=== PATIENT | female | born 1975 | race Caucasian/White ===

== ENCOUNTER 2020-02-25 01:47 | Outpatient (CLI) | payer OTHER, SELFPAY ==
--- NOTE | 2020-02-25 06:30 | DI.US_ITS ---
EXAM: US SOFT TISSUE EXTREMITY CLINICAL HISTORY: posterior left knee pain x 1yr,m25.562 TECHNIQUE: Ultrasound performed using standard protocol. COMPARISON: No exams were available for comparison FINDINGS: Soft tissue ultrasound was performed to evaluate questionable abnormality of the popliteal fossa. Th ere is no evidence of Rehman's cyst and no evidence solid mass in this region. IMPRESSION: Negative soft tissue ultrasound popliteal fossa. DATA REPOSITORY:
--- NOTE | 2020-02-25 06:30 | DI.RAD_ITS ---
EXAM: XR KNEE LT 3V AP,LAT,JANKI CLINICAL HISTORY: Posterior left knee pain x 1yr,m25.562 TECHNIQUE: COMPARISON: No exams were available for comparison FINDINGS: Three views were obtained. No bony or soft tissue abnormality seen. IMPRESSION:
== END 2020-02-25 02:07 ==
PROVIDERS: PCP Nurse Practitioner Family; Visit Provider Nurse Practitioner Family
DX: M25.562 Pain in left knee (principal)
CPT/HCPCS: 73562; 76881

== ENCOUNTER 2020-03-05 18:40 | Emergency (ER) | payer OTHER, SELFPAY ==
[2020-03-05 18:50] VITALS: BP 166/86; PULSE 88; RESP 18; TEMP 37; O2SAT 100
--- NOTE | 2020-03-05 18:55 | W.ED.GENAD ---
Discharge Plan Disposition Patient Disposition: HOME Condition: Stable Discharge Details Chief Complaint: Orthopedic Clinical Impression: Left ankle sprain, Lisfranc's sprain Primary Care Provider: Ana Fine ED Provider: Jimenez Hernandez Home Meds and New Rx's Prescriptions: Continued metaxalone [Skelaxin] 800 mg tablet 800 mg PO TID-QID PRNRF: 0 ibuprofen 800 mg tablet 800 mg PO Q6H PRNRF: 0 magnesium 250 mg tablet 500 mg PO DAILY RF: 0 Discharge Instructions Instructions: Ankle Sprain (ED), Foot Sprain (ED) Additional Instructions: Use orthopedic boot and crutches. No weightbearing on left foot. Please follow-up with orthopedics. Call tomorrow. Take ibuprofen as prescribed. Please take acetaminophen (tylenol) - 650mg every 6 hours by mouth as needed for pain. Return to the ER for any worsening or new concerning symptoms. Referrals: [facility] [Provider Group] Discharge Data Discharge Date/Time-TO BE ENTERED AT DEPARTURE: 03/05/20 20:50 Medical Decision Making 1855??44-year-old female presents 4 days after fall with injury to her left ankle, here with swelling and pain. Patient was seen at outside hospital emergency department had negative x-rays. Patient is quite tender anteromedially and has pain with any flexion or extension at her ankle. Concern for severe sprain versus fracture not apparent on initial x-rays. Plan to repeat x-ray today. She has not taken any ibuprofen today. I will give Toradol 30 mg IM. --X-ray of the foot and ankle were reviewed and interpreted by radiology:IMPRESSION: 1. No acute fracture or dislocation. 2. Question of widening between the bases of the 1st and 2nd metatarsals. If there is concern for ligamentous injury, MRI should be considered for further evaluation. Patient immobilized with orthopedic boot and provided crutches. Patient was advised to follow-up with orthopedics. HPI General Mode of arrival: ambulatory. Date/Time Provider Initiated Documentation: 03/05/20 18:54. Limitations to Documentation: no limitations. Information obtained by: patient. HPI Narrative: 44-year-old female presents with left foot and ankle pain. Patient notes that she slipped and fell and hyper plantarflexed her ankle underneath of her body 4 days ago. She has had pain in her ankle and foot since the fall. She was seen at outside hospital and had negative x-rays. She notes continued pain and swelling. Denies associated numbness or tingling. Pain is severe. Worse with ambulation and movement of the ankle. Related Data Home Medications Medication Instructions Recorded Confirmed metaxalone 800 mg tablet 800 mg PO TID-QID PRN 02/13/20 ibuprofen 800 mg tablet 800 mg PO Q6H PRN 03/04/20 magnesium 250 mg tablet 500 mg PO DAILY tab 03/04/20 Allergies Allergy/AdvReac Type Severity Reaction Status Date / Time adhesive tape Allergy Severe Verified 03/05/20 19:45 General Stated Complaint: Orthopedic BRAEDEN: 4 Review of Systems Musculoskeletal Musculoskeletal: Reports as per HPI Neurologic Neurologic: Reports as per HPI [facility] Medical History Amaurosis fugax (Acute) Cervical cancer (Resolved) Fatigue (Acute) Hypothyroid (Chronic) Low back pain (Acute) Migraine (Chronic) Neck pain (Acute) TMJ tenderness, bilateral (Acute) Surgical History H/O LEEP (Acute) H/O removal of cyst (Acute) From left breast H/O umbilical hernia repair (Acute) History of bunionectomy of left great toe (Acute) History of section (Chronic 06/02/08) S/P laparoscopic hysterectomy (Acute ~2008) S/P ORIF (open reduction internal fixation) fracture (Acute ~10/2006) For right ulnar and radius fracture Family History Mother Stomach cancer Colon cancer Mid 40s Father Colon cancer In his 50s Sister No problems noted. Sister No problems noted. Sister Thyroid cancer Daughter No problems noted. Maternal Grandfather , age 70 Heart disease Myocardial infarction Paternal Grandfather , age 70 Heart disease Myocardial infarction Maternal Grandmother , age 55 Heart disease Myocardial infarction Paternal Grandmother , age 84 Alzheimer disease Social History Smoking/Tobacco Use Status: Never Second Hand Exposure: Yes (as a child) Alcohol Intake: never Drug use: Never Caregiver/Support person: No Household members: spouse and children Communication Needs: None Do you need help understanding health information?: Never Pets and animals: Yes Pets and animals: cat(s) and dog(s) Sexually active: Yes Do you think of yourself as: straight/heterosexual Current gender identity: female What is your relationship status?: How often do you talk on the phone with friends or family?: decline to answer How often do you get together with friends or relatives?: decline to answer How often do you attend mu-ism or restoration services?: decline to answer Do you belong to any clubs or organized social groups?: no Panel score (0-1 are the most socially isolated patients): 1 What type of physical activity do you participate in: decline to answer Duration: decline to answer Frequency: decline to answer Michelle/Mormon: None Special michelle needs: No Seatbelt use: always Helmet use: Yes Helmet use: sometimes Drive intox or ride w/intox restaurant 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: No Female Reproductive History Menstrual Menopause type: surgical History History 1 Para 1 Hx # Term Pregnancies Multiple births Hx # Pregnancies Ectopic pregnancies AB induced Hx Number of Living Children 1 AB spontaneous Exam Const General: cooperative and no acute distress Cardio Rate: regular rate and not tachycardic Rhythm: regular rhythm Pulses: dorsalis pedis present bilaterally 2+ Skin Trauma: no lacerations Neuro General: patient alert, patient awake, patient oriented x3 and tone normal Extrem General: edema (Proximal foot and ankle) Laterality: left Left lower extremity: ankle Details: tenderness Location: anteromedially, swelling and abnormal ROM Details: pain with active ROM Details: with plantar flexion, with dorsiflexion and with inversion; no warmth and foot Details: tenderness Location: of the dorsal foot Location: proximally, toes with normal ROM and motor-sensory exam Details: light-touch normal; no lacerations Course Vital Signs Vital signs: Vital Signs Temperature 37 C 03/05/20 18:50 Pulse 88 03/05/20 18:50 Respiratory Rate 18 03/05/20 18:50 Blood Pressure 166/86 H 03/05/20 18:50 Pulse Oximetry 100 03/05/20 18:50 Temperature 37 C 03/05/20 18:50 Temperature Source Skin 03/05/20 18:50 Pulse 88 03/05/20 18:50 Respiratory Rate 18 03/05/20 18:50 Blood Pressure 166/86 H 03/05/20 18:50 Blood Pressure Position Sitting 03/05/20 18:50 Pulse Oximetry 100 03/05/20 18:50 Oxygen Delivery Method Room Air 03/05/20 18:50 Oxygen Flow Rate 0 03/05/20 18:50 Pain Level 8 03/05/20 18:50
[2020-03-05] MEDS: Ketorolac 30 MG/ML VIAL IM (19:04)
--- NOTE | 2020-03-05 19:34 | DI.RAD_ITS ---
EXAM: XR ANKLE LT COMPLETE and XR foot LT complete CLINICAL HISTORY: pain, swelling, injury 4 days ago TECHNIQUE: 2D digital imaging was performed. COMPARISON: CR,XR XR FOOT LT COMPLETE from 03/05/2020 FINDINGS: BONES: No acute fracture is present. No bony destructive lesion is seen. Old healed 5th metatarsal fr acture. JOINTS:The ankle mortise is normally aligned. Prior bunionectomy. There is a question of widening o f the bases of the 1st and 2nd metatarsals suspicious for ligament injury. SOFT TISSUE: Normal. IMPRESSION: 1. No acute fracture or dislocation. 2. Question of widening between the bases of the 1st and 2nd metatarsals. If there is concern for li gamentous injury, MRI should be considered for further evaluation. DATA REPOSITORY: RADIATION DOSE DELIVERED:
--- NOTE | 2020-03-05 19:42 | DI.VRAD_ITS ---
Addendum created by Aayush Da Silva MD on 03/05/2020 7:42:35 PM EDT THIS REPORT CONTAINS FINDINGS THAT MAY BE CRITICAL TO PATIENT CARE. The findings were verbally communicated via telephone conference with IRVIN HOLLINGSWORTH at 7:42 PM EDT on 03/05/2020. The findings were acknowledged and understood. Initial report created on 03/05/2020 7:42:00 PM EDT PROCEDURE INFORMATION: Exam: XR Left Foot Complete Exam date and time: 03/05/2020 7:30 PM Age: 44 years old Clinical indication: Pain; Ankle and foot; Left; Patient HX: Injury 4 days ago TECHNIQUE: Imaging protocol: XR Left foot. Views: 3 or more views. COMPARISON: No relevant prior studies available. FINDINGS: Bones/joints: Deformity of the 1st metatarsal is consistent with previous bunionectomy and there is also deformity involving the distal shaft of the left 5th metatarsal consistent with an old healed fracture. There is slight widening of the interval between the bases of the 1st and 2nd metatarsals and the lateral margin of the distal pole of the medial cuneiform raising the possibility of underlying ligamentous injury. No acute fractures are identified. Soft tissues: Unremarkable. IMPRESSION: 1. Bunionectomy defect involving the left great toe with old healed fracture also seen involving the distal shaft of the left 5th metatarsal. 2. Slight widening of the Lisfranc interval could relate to underlying ligamentous injury. MRI of left foot could provide additional diagnostic information. Dictated and Authenticated by: Aayush Da Silva MD. Ordering:SHEMAR Gaona MD
--- NOTE | 2020-03-05 19:43 | DI.VRAD_ITS ---
PROCEDURE INFORMATION: Exam: XR Left Ankle Exam date and time: 03/05/2020 7:29 PM Age: 44 years old Clinical indication: Pain; Ankle and foot; Left TECHNIQUE: Imaging protocol: XR Left ankle. Views: 3 or more views. COMPARISON: No relevant prior studies available. FINDINGS: Bones/joints: Talar dome is intact and the ankle mortise is preserved. Alignment is normal at the left ankle with no acute fracture detected. Soft tissues: Unremarkable. IMPRESSION: No acute findings. Dictated and Authenticated by: Aayush Da Silva MD. Ordering:SHEMAR Gaona MD
[2020-03-05 19:45] VITALS: BP 106/67; PULSE 68; RESP 16; O2SAT 98
== END 2020-03-05 20:50 | disposition home or self-care (01) ==
PROVIDERS: Emergency Provider Student in an Organized Health Care Education/Training Program; PCP Nurse Practitioner Family
DX: S93.622A Sprain of tarsometatarsal ligament of left foot, initial encounter (principal); S93.402A Sprain of unspecified ligament of left ankle, initial encounter; W18.30XA Fall on same level, unspecified, initial encounter; X50.9XXA Other and unspecified overexertion or strenuous movements or postures, initial encounter
CPT/HCPCS: 29515; 96372; 99284; 73610; 73630; J1885; L4361

== ENCOUNTER 2020-03-18 02:51 | Outpatient (CLI) | payer OTHER, SELFPAY ==
--- NOTE | 2020-03-18 08:45 | DI.MAMMO_ITS ---
EXAM: MAMMO SCREENING CLINICAL HISTORY: screening,Z12.39 TECHNIQUE: Mammograms were interpreted according to the usual protocol including computer analysis w [employer] CAD system, tomosynthesis and C-view imaging. COMPARISON: FINDINGS: The breasts are heterogeneously dense. No dominant mass or clumped microcalcification is identified in either breast. A focal well-circumscribed 2 cm radiodensity of the left breast projected superior ly on the MLO view is unchanged in appearance in comparison with prior studies including January 2018 an d may represent a cyst or asymmetric fibroglandular tissue. Is not appreciated on the CC views. No other significant interval change in appearance comparison with the prior studies. IMPRESSION: No specific evidence of malignancy at this time. Routine screening examinations are suggested at yea rly intervals in this age group according to the ACS ACR guidelines. BI-RADS Category 1 - Negative Breast Density - Category C - Heterogeneously dense
== END 2020-03-18 03:11 ==
PROVIDERS: PCP Nurse Practitioner Family; Visit Provider Nurse Practitioner Family
DX: Z12.31 Encounter for screening mammogram for malignant neoplasm of breast (principal); R92.2 Inconclusive mammogram
CPT/HCPCS: 77063; 77067

== ENCOUNTER 2020-06-18 08:09 | Outpatient (CLI) | payer OTHER, SELFPAY ==
[2020-06-20 13:17] LABS: SARS-CoV-2 RNA Not Detected (NotDetected); SARS-CoV-2 RNA Source Nasal/Nares
== END 2020-06-18 08:29 ==
PROVIDERS: PCP Nurse Practitioner Family; Visit Provider Surgery
DX: Z01.818 Encounter for other preprocedural examination (principal)
CPT/HCPCS: U0003

== ENCOUNTER 2020-06-22 07:39 | Day surgery (SDC) | payer OTHER, SELFPAY ==
[2020-06-22 08:09] VITALS: BP 113/66; PULSE 80; RESP 16; TEMP 36.7; O2SAT 98
[2020-06-22] MEDS: Lactated Ringers 1,000 ML 80 ML IV (08:23)
--- NOTE | 2020-06-22 10:07 | BOWEL_PTH ---
PATIENT: Adriane Mckeon LOC: [facility] U#:[id number] AGE/SX: 44/F ROOM: RE06/22/[address]: Ruby Cole MD : 1975 BED: DIS: 06/22/2020 SPEC #: [id number] RECD: 06/22/20 12:01 STATUS: GORDO REDelmar #: [id number] CHRISTINA: 06/22/20 10:[address]: Ruby Cole DEPT: Surgical Specimen RECD BY: Madelyn Mayfield ENTERED: 06/22/20 12:02 SP TYPE: Bowel OTHR DR: BARTOLOME Foreman Tissues: 1 - BIOPSY BOWEL Procedures: GROSS AND MICRO LEVEL 4 Comments: [id number] ([id number] [facility] [place]#)
--- NOTE | 2020-06-22 10:15 | COLE_ITS ---
Date of service: 06/22/20 Colonoscopy Report Date of procedure: 06/22/20 Pre-op diagnosis general: Family history of colon cancer Post-op diagnosis procedure note: other (polyp and mild diverticulosis) Procedure: Colonoscopy with polypectomy Surgeon: Ruby Cole Anesthesia proc note operative: other (General/ ASA 2/ Selvin Espinosa CRNA) Estimated blood loss (mL): 3 Pathology: other (Sigmoid polyp) Complications: None Disposition: same day Indications: The patient is here for Colonoscopy pre-op. Her last screening was in 2013 and was unremarkable. She reports a family history of colon cancer in her mother at the age of 42 and her father in his 60s. She has not had any bowel habit changes. -Discussed colonoscopy bowel prep as well as the procedure. Discussed possible complications of the procedure to include bleeding, pain, perforation, missed small lesion/polyp, sore throat, aspiration and adverse reaction to the medications. Questions were answered to patient?s satisfaction. No guarantees were implied or given. Prep: Miralax/Dulcolax Procedure Start Time: 09:50 Procedure End Time: 10:11 Retraction Time: 11 minutes Findings: One small polyp in the sigmoid colon Mild sigmoid diverticulosis Procedure Description: After informed consent was obtained the patient was taken to the procedure room and placed in a left decubitous position. Monitors were applied and a time out was done. The patients name, date of , procedure, allergies to medications and metal in their body was reviewed. The patient was then sedated. Once sedated and comfortable a rectal exam was done. External exam was normal. Internal exam revealed a normal sphincter tone and no palpable masses. The scope was then introduced and retro-flexed. No internal hemorrhoids were identified. The scope was then advanced to the cecum with no difficulty. The i leocecal valve and appendiceal orifice were identified. The prep was good. The scope was then slowly retracted over 11 minutes back into the rectum. Polyps were removed with cold forceps in the sigmoid colon. There was also mild diverticulosis noted in the sigmoid colon. The scope was removed and the patient was woken up and taken back to Same day surgery in stable condition. The patient tolerated the procedure well and there were no immediate complications. Follow up: The patient should follow up in 5 years unless they develop changes in bowel habits or other new gastrointestinal complaints.
--- NOTE | 2020-06-22 10:19 | PDOC.DSDIS_ITS ---
Discharge Plan Disposition Patient Disposition: HOME Condition: Good Discharge Details Reason For Visit: Colonoscopy Attending Provider: Ruby Cole Primary Care Provider: Ana Fine Home Meds and New Rx's Prescriptions: Continued metaxalone [Skelaxin] 800 mg tablet 800 mg PO TID-QID PRNRF: 0 ibuprofen 600 mg tablet 600 mg PO TID Qty: 42 RF: 1 ibuprofen 800 mg tablet 800 mg PO Q6H PRNRF: 0 Discontinued polyethylene glycol 3350 17 gram/dose powder 238 g PO ONCE Qty: 238 RF: 0 bisacodyl [Dulcolax (bisacodyl)] 5 mg tablet,delayed release (DR/EC) 5 mg PO ONCE Qty: 4 RF: 0 Discharge Instructions Instructions: Diverticulosis (DC), Colorectal Polyps (DC) Additional Instructions: Findings: One small polyp Mild diverticulosis Follow up: 5 years Please call if you develop: fevers >101.5 Nausea or Vomiting Abdominal pain that is not transient DAY SURGERY UNIT POST ENDOSCOPY INSTRUCTIONS 1. Because there will be medication in your system for the next 24 hours, you may feel a little sleepy. Your coordination will be affected. Therefore: a. Do not drive or operate dangerous equipment for 24 hours. b. Do not drink alcohol beverages for 24 hours (not even beer). c. Plan to go home and rest for the day. 2. Generally there are no restrictions on your activity after a day or so has g one by, but you may feel a bit fatigued for a few days. 3 After you arrive home you may have a light meal and return to a normal diet as you can tolerate it without feeling sick to your stomach. 4. After surgery, you may feel pain or discomfort. This should be only transient, but if it persists please contact your doctor. 5. If there are any questions regarding the findings of your procedure, please feel free to contact your doctor. 6. If you are unable to contact your doctor with a problem, contact the hospital at [phone]. 7. Continue all your regular medications unless directed otherwise. I understand the above instructions and have no questions. Signature of Patient or Responsible Adult Escort Date/Time Name of Responsible Adult Escort Signature of Nurse Date/Time Activity:: Activity as Tolerated Diet:: High Fiber diet
[2020-06-22 10:45] VITALS: BP 119/74; PULSE 58; RESP 16; TEMP 36.4; O2SAT 100
== END 2020-06-22 11:00 | disposition home or self-care (01) ==
PROVIDERS: PCP Nurse Practitioner Family; Visit Provider Surgery
PROC: 0DJD8ZZ Inspection of Lower Intestinal Tract, Via Natural or Artificial Opening Endoscopic (ICD-10-PCS; CPT 45378; principal; 2020-06-22 09:00)
DX: Z12.11 Encounter for screening for malignant neoplasm of colon (principal); Z80.0 Family history of malignant neoplasm of digestive organs; K63.5 Polyp of colon; K57.30 Diverticulosis of large intestine without perforation or abscess without bleeding
CPT/HCPCS: 45380; 88305; J2001

== ENCOUNTER 2021-10-26 20:32 | Emergency (ER) | payer BC, SELFPAY ==
[2021-10-26 20:36] VITALS: BP 137/84; PULSE 100; RESP 18; TEMP 37; O2SAT 100
--- NOTE | 2021-10-26 21:00 | DI.CT_ITS ---
Exam(s) CT ABDOMEN PELVIS W EXAM: CT ABDOMEN PELVIS W CLINICAL HISTORY: LLQ abdominal pain. TECHNIQUE: Imaging Protocol: Axial computed tomography images with coronal and sagittal reformatted images were created and reviewed CONTRAST MATERIAL: Intravenous: Omnipaque 100cc Oral: None COMPARISON: No exams were available for comparison FINDINGS: VISUALIZED LUNG BASES: No nodules nor pleural effusions evident. ABDOMEN: There is no ascites. LIVER: There is a small benign cyst in the posterior aspect of the left hepatic lobe. A tiny 3 buzz meters cyst is noted in the right hepatic lobe. There no sick nephric can't hepatic lesions and no d ilatation of intrahepatic ducts. GALLBLADDER/BILIARY: No obvious gallbladder pathology. CBD is not dilated. PANCREAS: No evidence of pancreatic mass nor dilatation of the pancreatic duct. SPLEEN: Spleen is not enlarged. No obvious intrasplenic lesions. Splenic and portal veins are paten t. ADRENALS: There are no significant adrenal masses. KIDNEYS:No cysts evident. No solid renal masses. There is a solitary tiny 2 millimeter calculus in t he left kidney. No calculi seen in the left ureter nor in the urinary bladder.. ABDOMINAL AORTA: Abdominal aorta is not enlarged. LYMPH NODES:There is no retroperitoneal nor paraaortic adenopathy. ABDOMINAL WALL: No evidence of significant anterior abdominal wall nor inguinal hernia. GI: No evidence of small-bowel obstruction. PELVIS: GI: No evidence of appendicitis.There is prominent inflammatory stranding around a diverticulum in th e upper sigmoid colon consistent with acute diverticulitis. Prominent inflammatory changes are seen at this level. No distinct abscess at this time. There is a small amount of fluid in the dependent aspect of the pelvis. LYMPH NODES: There is no intrapelvic nor inguinal adenopathy. REPRODUCTIVE: Uterus is surgically absent. No ovarian masses identified. URINARY BLADDER: Unremarkable. No calculi nor masses and no intraluminal gas to suggest fistulous co mmunication to the sigmoid, given the above findings. OSSEOUS: No significant osseous lesions. IMPRESSION: 1. Severe acute diverticulitis in the upper sigmoid. Although there is no abscess evident at this ti me, I feel there is significant risk for abscess development here. There is no free air. However, t here is a small amount of fluid in the dependent aspect of the pelvis. Cannot exclude the fact that this may be purulent fluid. 2. Solitary 2 millimeter tiny calculus in left kidney. Nonobstructive 3. Two small benign cysts noted in the liver. No evidence of liver abscess, given the findings in th e sigmoid. 4. No gas within the urinary bladder to suggest fistulous communication from the sigmoid inflammatory process described above. RADIATION DOSE DELIVERED: 900.01mGy.cm Total DLP DATA REPOSITORY: All CT scans at this facility are submitted to the National Radiology Data Registry (NRDR) Dose Index Registry (DIR) with the [employer] (ACR). RADIATION OPTIMIZATION: All CT scans at this facility use at least one of these dose optimization te chniques: automated exposure control; mA and/or kV adjustment per patient size (includes targeted exa ms where dose is matched to clinical indication); or iterative reconstruction.
[2021-10-26 21:18] LABS: Abs Immature Grans 0.04 10^3/uL (0.0-0.06); Absolute Basophil Count 0.07 10^3/uL (0.0-0.2); Absolute Monocyte Count 1.05 10^3/uL (0.1-0.8); Basophils % 0.6; Eosinophils % 0.8; HCT 42.6 % (36.0-46.0); HGB 14.3 g/dL (11.2-15.7); Immature Grans % 0.3; Lymphocytes % 8.6; MCHC 33.6 % (32.0-36.0); MCV 89.3 fL (80-95); MPV 9.5 fL (8.0-11.0); Monocytes % 8.8; Neutrophils % 80.9; Nucleated RBC 0 %; Platelet Count 234 10^3/uL (130-400); RBC 4.77 10^6/uL (3.93-5.22); RDW-SD 39.8 fL; WBC 11.92 10^3/uL (4.4-10.8)
[2021-10-26 21:19] LABS: Absolute Lymphocyte Count 1.03 10^3/uL (1.2-3.4); Absolute Neutrophil Count 9.64 10^3/uL (1.2-6.7)
[2021-10-26] MEDS: ACETAMINOPHEN 1,000 MG/100 ML BTL 400 MG IVPB (21:25)
[2021-10-26] MEDS: Normal Saline 1,000 ML 1000 ML IV (21:25)
[2021-10-26] MEDS: Ketorolac 15 MG/ML VIAL IVP (21:25)
[2021-10-26] MEDS: Omnipaque 350 MG/ML 100 ML BTL IJ (21:26)
[2021-10-26 21:27] LABS: Bilirubin Negative (Negative); Blood Trace-intact (Negative); Clarity Clear (Clear); Glucose Negative (Negative); Ketones 15 mg/dL (Negative); Leukocyte Esterase Trace (Negative); Nitrite Negative (Negative); Urobilinogen 0.2 EU/dL (Up TO 0.2)
--- NOTE | 2021-10-26 21:32 | NUR.NOTE ---
Nursing Note: Pt to DI fot Ct imaging.
[2021-10-26 21:34] LABS: Bacteria Few HPF (Negative); Epithelial Cells Few HPF (Negative); RBC 0-2 HPF (0-2); WBC 0-2 HPF (0-5)
[2021-10-26 21:35] LABS: C & S Indicated? No; Casts Negative LPF (Negative); Crystals Moderate Amorphous HPF (Negative); Mucus Negative (Negative)
--- NOTE | 2021-10-26 21:43 | NUR.NOTE ---
Nursing Note: Pt return from DI, IVF continued.
[2021-10-26 21:45] LABS: ALT 18 U/L (14-59); AST 11 U/L (15-37); Albumin 3.8 g/dL (3.4-5.0); Alkaline Phosphatase 83 U/L (46-116); Anion Gap 11.5 mmol/L (3-11); BUN 13 mg/dL (7-18); CO2 23.5 mmol/L (21.0-32.0); CREATININE 0.9 mg/dL (0.55-1.02); Calcium 9.3 mg/dL (8.5-10.1); Chloride 105 mmol/L (98-107); Glucose 102 mg/dL (74-106); Lipase 59 U/L (73-393); Potassium 3.7 mmol/L (3.5-5.1); Sodium 140 mmol/L (136-145); Total Protein 7.3 g/dL (6.4-8.2)
[2021-10-26] MEDS: CIPROFLOXACIN 400 MG/200 ML BAG 200 MG IVPB (22:07)
[2021-10-26] MEDS: metroNIDAZOLE 500 MG/100 ML BAG 100 MG IVPB (22:07)
--- NOTE | 2021-10-26 22:18 | DI.VRAD_ITS ---
PROCEDURE INFORMATION: Exam: CT Abdomen And Pelvis With Contrast Exam date and time: 10/26/2021 9:10 PM Age: 45 years old Clinical indication: Abdominal pain; Localized; Left lower quadrant (llq); Prior surgery; Surgery date: 6+ months; Surgery type: Hysterectomy, hernia repair, leep; Patient HX: HX of cervical CA TECHNIQUE: Imaging protocol: Computed tomography of the abdomen and pelvis with contrast. Radiation optimization: All CT scans at this facility use at least one of these dose optimization techniques: automated exposure control; mA and/or kV adjustment per patient size (includes targeted exams where dose is matched to clinical indication); or iterative reconstruction. Contrast material: OMNIPAQUE 350; Contrast volume: 100 ml; Contrast route: INTRAVENOUS (IV); COMPARISON: US SOFT TISSUE EXTREMITY 02/25/2020 7:30 AM FINDINGS: Liver: There is a diffuse decrease in hepatic parenchymal density, consistent with mild fatty infiltration. Liver is enlarged measuring approximately 16 cm. Gallbladder and bile ducts: Normal. No calcified stones. No ductal dilation. Pancreas: Normal. No ductal dilation. Spleen: The spleen is in the upper limits of normal in size. Spleen is otherwise normal. Adrenal glands: Normal. No mass. Kidneys and ureters: 2 mm nonobstructing calculi are seen within the upper poles of the kidneys bilaterally. Mild left hydronephrosis and hydroureter may be secondary to inflammation of the left ureter secondary to patient's diverticulitis. No definitive calculi identified within the ureter or bladder. Stomach and bowel: There is a segment of moderate to severe wall thickening at the junction of the sigmoid and descending colon, with associated severe inflammatory changes within the mesentery, consistent in appearance with acute diverticulitis. No evidence of free air or abscess to suggest perforation. As an underlying colonic malignancy cannot be entirely excluded, a follow-up examination after a course of treatment is recommended if clinically warranted. There are fluid-filled loops of small bowel with air-fluid levels. There is mild bowel wall thickening and inflammatory changes. No evidence of obstruction. Consider early enteritis. Consider inflammation from adjacent diverticulitis. Appendix: A normal appendix is identified. There is no evidence of distention or periappendiceal inflammation to suggest appendicitis. Intraperitoneal space: There is a moderate amount of free fluid seen within the dependent portion of the pelvis. Vasculature: The aorta is unremarkable without evidence of significant atherosclerosis or aneurysmal disease. The peripheral arterial vascular system visualized is unremarkable. The portal venous system visualized is unremarkable. Lymph nodes: Unremarkable. No enlarged lymph nodes. Urinary bladder: The bladder is normal. Reproductive: There has been a hysterectomy. No adnexal cysts or masses are identified. Bones/joints: The skeletal structures and soft tissues show no evidence of fracture or other acute processes. The lumbar spine demonstrates moderate degenerative changes. The skeletal structures and soft tissues show no evidence of fracture or other acute processes. Soft tissues: The extra-abdominal soft tissues are normal. IMPRESSION: 1. There is a segment of moderate to severe wall thickening at the junction of the sigmoid and descending colon, with associated severe inflammatory changes within the mesentery, consistent in appearance with acute diverticulitis. No evidence of free air or abscess to suggest perforation. As an underlying colonic malignancy cannot be entirely excluded, a follow-up examination after a course of treatment is recommended if clinically warranted. 2. There are fluid-filled loops of small bowel with air-fluid levels. There is mild bowel wall thickening and inflammatory changes. No evidence of obstruction. Consider early enteritis. Consider inflammation from adjacent diverticulitis. 3. Mild left hydronephrosis and hydroureter may be secondary to inflammation of the left ureter secondary to patient's diverticulitis. No definitive calculi identified within the ureter or bladder. 4. There is a moderate amount of free fluid seen within the dependent portion of the pelvis. Dictated and Authenticated by: Perry Morris MD. Ordering:MAINE De La Cruz MD
--- NOTE | 2021-10-26 22:35 | ED.GENADUL_ITS ---
Discharge Plan Disposition Patient Disposition: HOME Condition: Good Discharge Details Clinical Impression: Diverticulitis Primary Care Provider: Ana Fine ED Provider: Jono Viramontes Home Meds and New Rx's Prescriptions: New ciprofloxacin HCl 500 mg tablet 500 mg PO BID 7 Days Qty: 14 0RF metronidazole 500 mg tablet 500 mg PO TID 7 Days Qty: 21 0RF Continued metaxalone [Skelaxin] 800 mg tablet 800 mg PO TID-QID PRN0RF ibuprofen 600 mg tablet 600 mg PO TID Qty: 42 1RF Rx Instructions: Take up to three times a day for 2 weeks ibuprofen 800 mg tablet 800 mg PO Q6H PRN0RF Discharge Instructions Instructions: Diverticulitis (ED) Additional Instructions: At this time your CT scan shows evidence of diverticulitis. This requires antibiotic treatment. Please take the antibiotics as prescribed. Do not drink any alcohol while taking the metronidazole as this can cause a significant reaction. Take Tylenol and Motrin at home as needed for pain. Please stick with an easy diet of rice, applesauce, bananas, toast and liquids as you recover from this. Additionally you do have some thickening that was noted in your colon, this is likely secondary to the diverticulitis however with your family history of colon cancer would be beneficial to be reassessed and get a repeat colonoscopy soon. If you notice any worsening of your symptoms, or any new symptoms such as vomiting, worsening abdominal pain, diarrhea, fever, chills, shortness of breath, chest pain, numbness, weakness, or fainting , please return immediately to the emergency department for reevaluation. Please follow up with your primary care provider as soon as possible for reassessment and reevaluation. As always, it was a pleasure participating in your medical care today. Stand Alone Forms: Work Release Referrals: Ana Fine NP [Primary Care Provider] - Medical Decision Making 45-year-old female with a past medical history of cervical cancer and subsequent partial hysterectomy with retention of her ovaries, as well as a family history of colon cancer presents today for evaluation of left lower quadrant abdominal pain. Patient states that for the last 24 hours she has had mild to moderate left lower quadrant achiness. Does not seem to be associated with food, bowel movements, urinary movements. She denies any urinary frequency, or any hematuria, vomiting, hematochezia, or diarrhea. She has had a colonoscopy before which was relatively unremarkable. No other complaints at this time. No other modifying factors. Physical exam demonstrates evidence of mild left lower quadrant abdominal tenderness. No pain to McBurney's point, negative Veloz sign. Vital signs are stable. Signs and symptoms are concerning for diverticulitis, appendicitis is also on the differential but less likely. Get a CT scan, rehydrate, monitor closely and reassess. 10:40 PM Laboratory work-up is returned, minimally elevated white count, the remainder of the labs are unremarkable and stable otherwise. Urinalysis shows no evidence of significant infection. CT scan shows evidence of diverticulitis, no abscess or perforation at this time. On reassessment after Tylenol and Motrin the patient feels much better and she would like to go home. We will give a dose of Cipro Flagyl here, and a prescription for home. She is able to tolerate p.o. and has not had any vomiting. She prefers discharge home over admission. Patient will be discharged. I had a long discussion about signs and symptoms to be recommended for reassessment. Additionally there was some thickening noted on her colon, and I do feel that it would be beneficial to get a repeat colonoscopy out of concern for history of malignancy in her family. Discussed red flags which to return. I have extensively reviewed the treatment plan and discharge instructions with the patient. I have addressed all patient concerns at this time. The patient was made aware of what symptoms to monitor for that would warrant a return to the emergency department. Discussed the plan with the patient, they demonstrate verbal understanding and agreement with our assessment and plan at this time. The documentation in this chart was dictated using [employer] dictation software. Please excuse any dictation errors. FINDINGS: Liver: There is a diffuse decrease in hepatic parenchymal density, consistent with mild fatty infiltration. Liver is enlarged measuring approximately 16 cm. Gallbladder and bile ducts: Normal. No calcified stones. No ductal dilation. Pancreas: Normal. No ductal dilation. Spleen: The spleen is in the upper limits of normal in size. Spleen is otherwise normal. Adrenal glands: Normal. No mass. Kidneys and ureters: 2 mm nonobstructing calculi are seen within the upper poles of the kidneys bilaterally. Mild left hydronephrosis and hydroureter may be secondary to inflammation of the left ureter secondary to patient's diverticulitis. No definitive calculi identified within the ureter or bladder. Stomach and bowel: There is a segment of moderate to severe wall thickening at the junction of the sigmoid and descending colon, with associated severe inflammatory changes within the mesentery, consistent in appearance with acute diverticulitis. No evidence of free air or abscess to suggest perforation. As an underlying colonic malignancy cannot be entirely excluded, a follow-up examination after a course of treatment is recommended if clinically warranted. There are fluid-filled loops of small bowel with air-fluid levels. There is mild bowel wall thickening and inflammatory changes. No evidence of obstruction. Consider early enteritis. Consider inflammation from adjacent diverticulitis. Appendix: A normal appendix is identified. There is no evidence of distention or periappendiceal inflammation to suggest appendicitis. Intraperitoneal space: There is a moderate amount of free fluid seen within the dependent portion of the pelvis. Vasculature: The aorta is unremarkable without evidence of significant atherosclerosis or aneurysmal disease. The peripheral arterial vascular system visualized is unrem arkable. The portal venous system visualized is unremarkable. Lymph nodes: Unremarkable. No enlarged lymph nodes. Urinary bladder: The bladder is normal. Reproductive: There has been a hysterectomy. No adnexal cysts or masses are identified. Bones/joints: The skeletal structures and soft tissues show no evidence of fracture or other acute processes. The lumbar spine demonstrates moderate degenerative changes. The skeletal structures and soft tissues show no evidence of fracture or other acute processes. Soft tissues: The extra-abdominal soft tissues are normal. IMPRESSION: 1. There is a segment of moderate to severe wall thickening at the junction of the sigmoid and descending colon, with associated severe inflammatory changes within the mesentery, consistent in appearance with acute diverticulitis. No evidence of free air or abscess to suggest perforation. As an underlying colonic malignancy cannot be entirely excluded, a follow-up examination after a course of treatment is recommended if clinically warranted. 2. There are fluid-filled loops of small bowel with air-fluid levels. There is mild bowel wall thickening and inflammatory changes. No evidence of obstruction. Consider early enteritis. Consider inflammation from adjacent diverticulitis. 3. Mild left hydronephrosis and hydroureter may be secondary to inflammation of the left ureter secondary to patient's diverticulitis. No definitive calculi identified within the ureter or bladder. 4. There is a moderate amount of free fluid seen within the dependent portion of the pelvis. Thank you for allowing us to participate in the care of your patient. Dictated and Authenticated by: Perry Morris MD 10/26/2021 10:17 PM Eastern Time ([place] & [place]) HPI General Date/Time Provider Initiated Documentation: 10/26/21 20:35 . HPI Narrative: 45-year-old female with a past medical history of cervical cancer and subsequent partial hysterectomy with retention of her ovaries, as well as a family history of colon cancer presents today for evaluation of left lower quadrant abdominal pain. Patient states that for the last 24 hours she has had mild to moderate left lower quadrant achiness. Does not seem to be associated with food, bowel movements, urinary movements. She denies any urinary frequency, or any hematuria, vomiting, hematochezia, or diarrhea. She has had a colonoscopy before which was relatively unremarkable. No other complaints at this time. No other modifying factors. Related Data Home Medications Medication Instructions Recorded Confirmed metaxalone 800 mg tablet (Skelaxin) 800 mg PO TID-QID PRN 02/13/20 06/22/20 ibuprofen 800 mg tablet 800 mg PO Q6H PRN 03/04/20 06/22/20 ibuprofen 600 mg tablet 600 mg PO TID #42 tab 03/11/20 06/22/20 ciprofloxacin HCl 500 mg tablet 500 mg PO BID 7 Days #14 tab 10/26/21 metronidazole 500 mg tablet 500 mg PO TID 7 Days #21 tab 10/26/21 Previous Rx's Medication Instructions Recorded ibuprofen 600 mg tablet 600 mg PO TID #42 tab 03/11/20 ciprofloxacin HCl 500 mg tablet 500 mg PO BID 7 Days #14 tab 10/26/21 metronidazole 500 mg tablet 500 mg PO TID 7 Days #21 tab 10/26/21 Allergies Allergy/AdvReac Type Severity Reaction Status Date / Time adhesive tape Allergy Severe Verified 06/12/20 12:54 General Stated Complaint: Abd Prob BRAEDEN: 3 Review of Systems All systems reviewed & are unremarkable except as noted in HPI and below PFSH All Active Problems (Updated 10/26/21 @ 22:42 by Jono Viramontes DO) Diverticulitis (Chronic) Chronic pain of both feet (Acute) Tubular adenoma (Acute ~06/2020) Sprain of foot, left (Acute) Midfoot BMI 28.0-28.9,adult (Acute) Pain in joints of left hand (Acute) Pain in joints of right hand (Acute) Low back pain (Acute) Chronic pain (Chronic) Medical History Amaurosis fugax Cervical cancer Fatigue Hypothyroid Migraine Neck pain TMJ tenderness, bilateral Surgical History H/O LEEP H/O removal of cyst From left breast H/O umbilical hernia repair History of bunionectomy of left great toe History of section (06/02/08) S/P laparoscopic hysterectomy (~2008) S/P ORIF (open reduction internal fixation) fracture (~10/2006) For right ulnar and radius fracture Family History Mother Stomach cancer Colon cancer Mid 40s Father Colon cancer In his 50s Sister No problems noted. Sister No problems noted. Sister Thyroid cancer Daughter No problems noted. Maternal Grandfather , age 70 Heart disease Myocardial infarction Paternal Grandfather , age 70 Heart disease Myocardial infarction Maternal Grandmother , age 55 Heart disease Myocardial infarction Paternal Grandmother , age 84 Alzheimer disease Social History Smoking/Tobacco Use Status: Never Second Hand Exposure: Yes (as a child) Smoking risk assessment performed?: Yes Alcohol Intake: never Drug use: Occasionally Substance use type: marijuana Caregiver/Support person: No Household members: spouse and children Communication Needs: None Do you need help understanding health information?: Never Pets and animals: Yes Pets and animals: cat(s) and dog(s) Sexually active: Yes Do you think of yourself as: straight/heterosexual Current gender identity: female What is your relationship status?: How often do you talk on the phone with friends or family?: decline to answer How often do you get together with friends or relatives?: decline to answer How often do you attend pentecostal or temple services?: decline to answer Do you belong to any clubs or organized social groups?: no Panel score (0-1 are the most socially isolated patients): 1 What type of physical activity do you participate in: decline to answer Duration: decline to answer Frequency: decline to answer Michelle/Adventism: None Special michelle needs: No Seatbelt use: always Helmet use: Yes Helmet use: sometimes 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 3.ENT: Atraumatic external nose and ears. Moist MM. Neck: Symmetric, trachea midline, No thyromegaly. 4.CVS: +S1/S2, No murmurs or gallops. Peripheral pulses 2+ and equal in all extremities. Brisk capillary refill in all extremities. 5.RESP: Unlabored respiratory effort. Clear to auscultation bilaterally. No wheezes rales or rhonchi 6.GI: Soft, nondistended. Tenderness is present in the left lower quadrant. No guarding. No pain at McBurney's point, negative Veloz sign. No flank or CVA tenderness. 7.MSK: Normocephalic/Atraumatic, Extremities w/o deformity or ttp No cyanosis or clubbing, Normal movement of all extremities 8.Skin: Warm, Dry. No rashes or lesions. 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 Sensation grossly intact, no focal neurologic deficits. 10.Psych: (AAO) x3. Appropriate mood and affect Course Vital Signs Vital signs: Vital Signs Temperature 37.0 C 10/26/21 20:36 Pulse 100 H 10/26/21 20:36 Respiratory Rate 18 10/26/21 20:36 Blood Pressure 137/84 10/26/21 20:36 Pulse Oximetry 100 10/26/21 20:36 Temperature 37.0 C 10/26/21 20:36 Temperature Source Skin 10/26/21 20:36 Pulse 100 H 10/26/21 20:36 Respiratory Rate 18 10/26/21 20:36 Respiratory Effort Non-Labored 10/26/21 20:42 Blood Pressure 137/84 10/26/21 20:36 Blood Pressure Position Sitting 10/26/21 20:36 Pulse Oximetry 100 10/26/21 20:36 Oxygen Delivery Method Room Air 10/26/21 20:36 Oxygen Flow Rate 0 10/26/21 20:36 Pain Level 8 10/26/21 21:25 Lab/Test Results Lab/Test Results: Laboratory Tests Range/Units 10/26/21 10/26/21 10/26/21 21:15 21:15 21:20 WBC (4.4-10.8) 10^3/uL 11.92 H RBC (3.93-5.22) 10^6/uL 4.77 Hgb (11.2-15.7) g/dL 14.3 Hct (36.0-46.0) % 42.6 MCV (80-95) fL 89.3 MCH (27.0-33.0) pg 30.0 MCHC (32.0-36.0) % 33.6 RDW (11.7-14.6) % 12.0 Plt Count (130-400) 10^3/uL 234 MPV (8.0-11.0) fL 9.5 Immature Gran % 0.3 Neutrophils % 80.9 Lymphocytes % 8.6 Monocytes % 8.8 Eosinophils % 0.8 Basophils % 0.6 Nucleated RBC % % 0 Absolute Neutrophils (1.2-6.7) 10^3/uL 9.64 H Absolute Lymphocytes (1.2-3.4) 10^3/uL 1.03 L Absolute Monocytes (0.1-0.8) 10^3/uL 1.05 H Absolute Eosinophils (0.0-0.7) 10^3/uL 0.10 Absolute Basophils (0.0-0.2) 10^3/uL 0.07 Sodium (136-145) mmol/L 140 Potassium (3.5-5.1) mmol/L 3.7 Chloride (98-107) mmol/L 105 Carbon Dioxide (21.0-32.0) mmol/L 23.5 Anion Gap (3-11) mmol/L 11.5 H BUN (7-18) mg/dL 13 Creatinine (0.55-1.02) mg/dL 0.9 Estimated GFR/1.73 m2 (mL/min/1.73m2) >= 60.00 Glucose (74-106) mg/dL 102 Calcium (8.5-10.1) mg/dL 9.3 Total Bilirubin (0.2-1.0) mg/dL 1.0 AST (15-37) U/L 11 L ALT (14-59) U/L 18 Alkaline Phosphatase (46-116) U/L 83 Total Protein (6.4-8.2) g/dL 7.3 Albumin (3.4-5.0) g/dL 3.8 Lipase (73-393) U/L 59 Urine Color (Yellow) Yellow Urine Clarity (Clear) Clear Urine pH (5-8) 7.0 Ur Specific Swan (1.005-1.025) 1.020 Urine Protein (Negative) mg/dL Trace H Urine Ketones (Negative) mg/dL 15 H Urine Blood (Negative) Trace-intact H Urine Nitrite (Negative) Negative Urine Bilirubin (Negative) Negative Urine Urobilinogen (Up TO 0.2) EU/dL 0.2 Ur Leukocyte Esterase (Negative) Trace H Urine RBC (0-2) HPF 0-2 Urine WBC (0-5) HPF 0-2 Ur Epithelial Cells (Negative) HPF Few Urine Crystals (Negative) HPF Moderate Amorphous Urine Bacteria (Negative) HPF Few Urine Casts (Negative) LPF Negative Urine Mucus (Negative) Negative Ur Culture Indicated? No Urine Glucose (Negative) mg/dL Negative
[2021-10-26 22:49] VITALS: BP 118/80; PULSE 76; RESP 18; TEMP 37; O2SAT 97
== END 2021-10-26 23:07 | disposition home or self-care (01) ==
PROVIDERS: Emergency Provider Student in an Organized Health Care Education/Training Program; PCP Nurse Practitioner Family
DX: K57.92 Diverticulitis of intestine, part unspecified, without perforation or abscess without bleeding (principal); R10.32 Left lower quadrant pain
CPT/HCPCS: 36415; 80053; 83690; 96361; 96365; 96368; 96375; 99285; 74177; 81003; 81015; 85025; 99284; J0131; J0744; J1885; J3490

== ENCOUNTER 2023-02-01 02:43 | Outpatient (CLI) | payer BC, SELFPAY ==
[2023-02-01 14:19] LABS: Hemoglobin A1C 5.6 % (<5.7)
[2023-02-01 14:51] LABS: ALT 22 U/L (14-59); AST 15 U/L (15-37); Albumin 4.3 g/dL (3.4-5.0); Alkaline Phosphatase 80 U/L (46-116); Anion Gap 9.4 mmol/L (3-11); BUN 19 mg/dL (7-18); Bilirubin, Total 0.6 mg/dL (0.2-1.0); CO2 26.6 mmol/L (21.0-32.0); CREATININE 0.8 mg/dL (0.55-1.02); Calcium 9.5 mg/dL (8.5-10.1); Calculated LDL 118 mg/dL (<100); Chloride 107 mmol/L (98-107); Cholesterol 206 mg/dL (<200); Estimated GFR 90.27 (mL/min/1.73m2); Glucose 81 mg/dL (74-106); HDL Cholesterol 66 mg/dL (40-60); Potassium 3.7 mmol/L (3.5-5.1); Sodium 143 mmol/L (136-145); TSH (W/Ref FT4) 1.41 uIU/mL (0.36-3.74); Total Protein 7.4 g/dL (6.4-8.2); Triglyceride 111 mg/dL (<150)
== END 2023-02-01 02:44 | disposition home or self-care (01) ==
LOC: LBO 02:44
PROVIDERS: PCP Nurse Practitioner Family; Visit Provider Nurse Practitioner Family
DX: Z00.00 Encounter for general adult medical examination without abnormal findings (principal)
CPT/HCPCS: 36415; 80053; 80061; 83036; 84443

== ENCOUNTER 2023-02-10 00:27 | Outpatient (CLI) | payer BC, SELFPAY ==
--- NOTE | 2023-02-10 07:45 | DI.MAMMO_ITS ---
Exam(s) MAMMO SCREENING EXAM: MAMMO SCREENING CLINICAL HISTORY: screening,Z12.39 TECHNIQUE: Mammograms were interpreted according to the usual protocol including computer analysis w [employer] CAD system, tomosynthesis and C-view imaging. COMPARISON: 2013 through 2019 FINDINGS: The breasts are composed of heterogeneously dense fibroglandular densities, Breast Density category C . No suspicious masses or suspicious microcalcifications are seen. No skin thickening or abnormal axillary lymph nodes are seen. There has been no significant change from prior exams. IMPRESSION: BI-RADS Category 1, Negative mammogram. Yearly screening mammography is recommended. Breast Density Category C, heterogeneously Dense. The mammogram demonstrates the patient's breast tissue is dense. Dense breast tissue is very common a nd is not abnormal but dense breast tissue can make it harder to find cancer on a mammogram. Also, de nse breast tissue may increase breast cancer risk. This information about the result of the mammogram report was provided to the patient to raise their awareness. Use this report when you speak with the patient about their risks for breast cancer, which includes their family history. At that time, you may recommend additional screening tests (Ultrasound or MRI) as they might be useful based on their r isk. A negative radiographic report should not delay biopsy if a dominant or clinically suspicious mass is present. Up to ten percent of cancers are not identified on mammography. A negative report may reinforce clinical impression. Adenosis and dense breasts may obscure an underlying neoplasm. False positive reports average 6 to 10%.
--- NOTE | 2023-02-10 15:08 | DI.RAD_ITS ---
Exam(s) XR CERVICAL SPINE COMP 4-5V EXAM: XR CERVICAL SPINE COMP 4-5V CLINICAL HISTORY: chronic neck pain,M54.2. TECHNIQUE: 2D digital imaging was performed. COMPARISON: No exams were available for comparison FINDINGS: BONES: No fracture or destructive lesion. Vertebral bodies are unremarkable. Mild facet degenerativ e changes. No evidence of neural foraminal narrowing. DISKS: Intervertebral disc spaces are maintained. ALIGNMENT: Cervical spinal alignment is within normal limits. The odontoid and atlantoaxial articulat ions are normal. SOFT TISSUE: Normal. The lung apices are clear. IMPRESSION: Unremarkable radiographs of the cervical spine. DATA REPOSITORY: RADIATION DOSE DELIVERED:
== END 2023-02-10 00:47 ==
LOC: DI 00:27
PROVIDERS: PCP Nurse Practitioner Family; Visit Provider Nurse Practitioner Family
DX: M54.2 Cervicalgia (principal); Z12.31 Encounter for screening mammogram for malignant neoplasm of breast
CPT/HCPCS: 77063; 77067; 72050

== ENCOUNTER 2024-05-03 00:22 | Outpatient (CLI) | payer BC, SELFPAY ==
--- NOTE | 2024-05-03 07:45 | DI.RAD_ITS ---
Exam(s) XR WRIST LT COMP NAVICULAR XR WRIST RT COMPL NAVICULAR XR ARTHRITIS SERIES EXAM: XR WRIST LT COMP NAVICULAR CLINICAL HISTORY: wrist pain,LT,M25.539. TECHNIQUE: 2D digital imaging was performed. Four views of the wrists. Two views of the hands COMPARISON: CR XR ARTHRITIS SERIES from 05/03/2024 CR XR WRIST RT COMPL NAVICULAR from 05/03/2024 FINDINGS: BONES: No acute fracture is present. No bony destructive lesion is seen. JOINTS: The carpal bones are normally aligned. Minimal degenerative changes at the left 1st carpal metacarpal joint. Minimal in the degenerative changes of the interphalangeal joints. SOFT TISSUE: Normal. IMPRESSION: Minimal degenerative changes at the 1st carpal metacarpal joint and interphalangeal joints. DATA REPOSITORY: RADIATION DOSE DELIVERED:
--- NOTE | 2024-05-03 07:45 | DI.MAMMO_ITS ---
Exam(s) MAMMO SCREENING EXAM: MAMMO SCREENING CLINICAL HISTORY: screening,Z12.39 TECHNIQUE: Mammograms were interpreted according to the usual protocol including computer analysis w [employer] CAD system, tomosynthesis and C-view imaging. COMPARISON: 2014 through 2022 FINDINGS: The breasts are composed of heterogeneously dense fibroglandular densities, Breast Density category C . No suspicious masses or suspicious microcalcifications are seen. Stable area nodularity in the super ior left breast No skin thickening or abnormal axillary lymph nodes are seen. There has been no significant change from prior exams. IMPRESSION: BI-RADS Category 2 - Negative Mammogram with benign findings. Yearly screening mammography is recommended. Breast Density Category C, heterogeneously Dense. The mammogram demonstrates the patient's breast tissue is dense. Dense breast tissue is very common a nd is not abnormal but dense breast tissue can make it harder to find cancer on a mammogram. Also, de nse breast tissue may increase breast cancer risk. This information about the result of the mammogram report was provided to the patient to raise their awareness. Use this report when you speak with the patient about their risks for breast cancer, which includes their family history. At that time, you may recommend additional screening tests (Ultrasound or MRI) as they might be useful based on their r isk. A negative radiographic report should not delay biopsy if a dominant or clinically suspicious mass is present. Up to ten percent of cancers are not identified on mammography. A negative report may reinforce clinical impression. Adenosis and dense breasts may obscure an underlying neoplasm. False positive reports average 6 to 10%.
== END 2024-05-03 00:42 ==
LOC: DI 00:22
PROVIDERS: PCP Nurse Practitioner Family; Visit Provider Nurse Practitioner Family
DX: Z12.31 Encounter for screening mammogram for malignant neoplasm of breast (principal); M18.0 Bilateral primary osteoarthritis of first carpometacarpal joints
CPT/HCPCS: 77063; 77067; 73110

== ENCOUNTER 2024-05-03 14:12 | Outpatient (CLI) | payer BC, SELFPAY ==
[2024-05-03 14:31] LABS: Abs Immature Grans 0.07 10^3/uL (0.0-0.06); Absolute Basophil Count 0.02 10^3/uL (0.0-0.2); Absolute Eosinophil Count 0.01 10^3/uL (0.0-0.7); Absolute Lymphocyte Count 2.56 10^3/uL (1.2-3.4); Absolute Monocyte Count 0.51 10^3/uL (0.1-0.8); Absolute Neutrophil Count 7.06 10^3/uL (1.2-6.7); Basophils % 0.2 %; Eosinophils % 0.1 %; HCT 41.3 % (36.0-46.0); HGB 14.3 g/dL (11.2-15.7); Immature Grans % 0.7 %; MCH 29.8 pg (27.0-33.0); MCHC 34.6 % (32.0-36.0); MCV 86 fL (80-95); MPV 9.3 fL (8.0-11.0); Platelet Count 297 10^3/uL (130-400); RDW 12.6 % (11.7-14.6); RDW-SD 39.7 fL; WBC 10.23 10^3/uL (4.4-10.8)
[2024-05-03 14:35] LABS: ESR 2 mm/hr (0-20)
[2024-05-03 15:21] LABS: ALT 19 U/L (14-59); AST 10 U/L (15-37); Albumin 3.9 g/dL (3.4-5.0); Alkaline Phosphatase 72 U/L (46-116); Anion Gap 9.5 mmol/L (3-11); BUN 19 mg/dL (7-18); C-Reactive Protein < 0.50 mg/dL (<or=0.5); CO2 25.5 mmol/L (21.0-32.0); CREATININE 0.9 mg/dL (0.55-1.02); Calcium 9.2 mg/dL (8.5-10.1); Chloride 105 mmol/L (98-107); Estimated GFR 77.88 (mL/min/1.73m2); Glucose 113 mg/dL (74-106); Potassium 3.2 mmol/L (3.5-5.1); Sodium 140 mmol/L (136-145); Total Protein 6.9 g/dL (6.4-8.2)
[2024-05-06 10:24] LABS: Hepatitis C Ab w Rflx HCV PCR Negative (Negative)
[2024-05-06 10:35] LABS: HIV-1/2 Ag & Ab Screen Negative (Negative)
[2024-05-06 10:48] LABS: Lyme Ab w Rflx to Lyme Confirm Negative (Negative)
[2024-05-06 11:04] LABS: HBs Antibody, Quant >1000.0 mIU/mL (See Note); Hep B Surface Ab Positive (See Note); Hepatitis B Core Antibody Negative (Negative); Hepatitis B Surface Antigen Negative (Negative)
[2024-05-07 20:12] LABS: Anaplasma phagocytophilum Negative (Negative); B. miyamotoi PCR Negative (Negative); Babesia divergens/MO-1 Negative (Negative); Babesia duncani Negative (Negative); Babesia microti Negative (Negative); Ehrlichia chaffeensis Negative (Negative); Ehrlichia ewingii/canis Negative (Negative); Ehrlichia muris eauclairensis Negative (Negative)
== END 2024-05-03 14:13 | disposition home or self-care (01) ==
LOC: LBO 14:13
PROVIDERS: PCP Nurse Practitioner Family; Visit Provider Nurse Practitioner Family
DX: Z11.59 Encounter for screening for other viral diseases (principal); M19.041 Primary osteoarthritis, right hand; Z11.4 Encounter for screening for human immunodeficiency virus [HIV]
CPT/HCPCS: 36415; 80053; 85652; 86704; 86706; 86803; 87340; 87389; 87798; 85025; 86140; 86618

== ENCOUNTER 2024-07-18 01:42 | Outpatient (CLI) | payer BC, SELFPAY ==
--- NOTE | 2024-07-18 08:30 | DI.MRI_ITS ---
Exam(s) MR UPPER JOINT LT WO EXAM: MR UPPER JOINT LT WO CLINICAL HISTORY: lt elbow pain, m25.522,m25.422, effusion lt elbow, swelling lt elbow. TECHNIQUE: Multiplanar multisequence MRI was performed. COMPARISON: Left wrist 03 May 2024 FINDINGS: BONES: There is no fracture or contusion pattern. JOINTS: The radiocarpal joint is unremarkable. The carpal joints are unremarkable. There is a small amount of fluid between the distal radial ulnar joint few small adjacent ganglion cysts. TENDONS: No focal tendon abnormality is identified. There is no significant tendon edema. There is fluid aroun d the dorsal extensor tendons, extensor pollicis brevis and abductor pollicis longus as well as exten sor carpi ulnaris tendons. Mild edema is also seen around the tendons in the region of the carpal clarissa sarah. MUSCLES: Unremarkable. MEDIAN NERVE: Unremarkable on this noncontrast examination. SOFT TISSUES: Unremarkable. TRIANGULAR FIBROCARTILAGE: Unremarkable. IMPRESSION: Mild diffuse fluid seen around the tendons of the wrist, consistent with diffuse synovitis. No focal tendon abnormality or thickening is seen. DATA REPOSITORY:
--- NOTE | 2024-07-18 08:30 | DI.MRI_ITS ---
Exam(s) MR UPPER JOINT LT WO EXAM: MR UPPER JOINT LT WO CLINICAL HISTORY: lt elbow pain, m25.522,m25.422, effusion lt elbow, swelling lt elbow. TECHNIQUE: Multiplanar multisequence MRI was performed. COMPARISON: None. FINDINGS: The T2 weighted images are limited by mild motion and pulsation artifact. Elbow joint: Minimal joint effusion. No loose bodies. Bones: There is no fracture or contusion pattern. Biceps tendon: Intact. No tendinosis. Brachialis tendon: Question of some edema within distal muscle and tendon versus artifact. Common flexor tendons: Intact. No tendinosis. Common extensor tendons: Intact. No tendinosis. Triceps tendon: Intact. Question of mild edema in the medial aspect of the distal triceps muscle med ially versus artifact. Soft tissues: Unremarkable. IMPRESSION: Somewhat limited exam due to artifacts. Minimal joint effusion. Question of edema in distal triceps and brachialis muscles. DATA REPOSITORY:
== END 2024-07-18 02:02 ==
LOC: DI 01:42
PROVIDERS: PCP Nurse Practitioner Family; Visit Provider Student in an Organized Health Care Education/Training Program
DX: M25.422 Effusion, left elbow; M25.432 Effusion, left wrist
CPT/HCPCS: 73221

== ENCOUNTER 2024-07-26 15:09 | Outpatient (CLI) | payer BC, SELFPAY ==
[2024-07-26 14:33] LABS: Abs Immature Grans 0.03 10^3/uL (0.0-0.06); Absolute Basophil Count 0.08 10^3/uL (0.0-0.2); Absolute Eosinophil Count 0.31 10^3/uL (0.0-0.7); Absolute Lymphocyte Count 1.32 10^3/uL (1.2-3.4); Absolute Monocyte Count 0.41 10^3/uL (0.1-0.8); Absolute Neutrophil Count 3.58 10^3/uL (1.2-6.7); Basophils % 1.4 %; ESR 2 mm/hr (0-20); Eosinophils % 5.4 %; HCT 41.6 % (36.0-46.0); HGB 14.1 g/dL (11.2-15.7); Immature Grans % 0.5 %; MCHC 33.9 % (32.0-36.0); MCV 89 fL (80-95); MPV 8.9 fL (8.0-11.0); Monocytes % 7.2 %; Neutrophils % 62.5 %; Platelet Count 275 10^3/uL (130-400); RDW 12.2 % (11.7-14.6); RDW-SD 39.8 fL; WBC 5.73 10^3/uL (4.4-10.8)
[2024-07-26 19:01] LABS: ALT 14 U/L (14-59); AST 14 U/L (15-37); Albumin 4.3 g/dL (3.4-5.0); Alkaline Phosphatase 95 U/L (46-116); Anion Gap 11.9 mmol/L (3-11); BUN 12 mg/dL (7-18); Bilirubin, Total 0.56 mg/dL (0.2-1.0); CO2 23.1 mmol/L (21.0-32.0); CREATININE 0.9 mg/dL (0.55-1.02); Calcium 9.7 mg/dL (8.5-10.1); Chloride 108 mmol/L (98-107); Estimated GFR 77.88 (mL/min/1.73m2); Glucose 89 mg/dL (74-106); Potassium 3.9 mmol/L (3.5-5.1); Sodium 143 mmol/L (136-145); Total Protein 7.2 g/dL (6.4-8.2)
[2024-07-27 21:57] LABS: CRP, High Sensitivity 2.47 mg/L (See Note); Rheumatoid Factor <8.6 IU/mL (<12.0)
[2024-07-29 09:30] LABS: Lyme Ab w Rflx to Lyme Confirm Negative (Negative)
[2024-07-29 10:35] LABS: Cyclic Citrullinated Peptide <2.5 U/mL (<5.0)
[2024-07-29 13:56] LABS: ANA Interpretation Negative (Negative)
[2024-07-30 13:17] LABS: Anaplasma phagocytophilum Negative (Negative); B. miyamotoi PCR Negative (Negative); Babesia divergens/MO-1 Negative (Negative); Babesia duncani Negative (Negative); Babesia microti Negative (Negative); Ehrlichia chaffeensis Negative (Negative); Ehrlichia ewingii/canis Negative (Negative); Ehrlichia muris eauclairensis Negative (Negative)
== END 2024-07-26 15:10 | disposition home or self-care (01) ==
LOC: LBO 15:10
PROVIDERS: PCP Nurse Practitioner Family; Visit Provider Nurse Practitioner Family
DX: M25.431 Effusion, right wrist (principal); M25.432 Effusion, left wrist; M79.89 Other specified soft tissue disorders; M65.931 Unspecified synovitis and tenosynovitis, right forearm; M65.932 Unspecified synovitis and tenosynovitis, left forearm; M25.50 Pain in unspecified joint
CPT/HCPCS: 36415; 80053; 85652; 86141; 86200; 87798; 85025; 86038; 86431; 86618